=== PATIENT | male | born 1975 | race Caucasian/White ===

== ENCOUNTER 2021-07-18 13:47 | Emergency (ER) | payer OTHER ==
[~2021-07-18] VITALS: Ht 182.9 cm; Wt 136.4 kg
[2021-07-18 15:15] VITALS: BP 138/75
[2021-07-18] MEDS ORDERED: IBUPROFEN 600 MG TABLET PO ONE (15:30)
== END 2021-07-18 16:03 | disposition home or self-care (01) ==
LOC: EMS 13:47
DX: M79.662 Pain in left lower leg (principal); F17.210 Nicotine dependence, cigarettes, uncomplicated; F12.90 Cannabis use, unspecified, uncomplicated; F15.90 Other stimulant use, unspecified, uncomplicated
CPT/HCPCS: 93971; 99283; 99284

== ENCOUNTER 2023-10-29 16:39 | Emergency (ER) | payer OTHER ==
[~2023-10-29] VITALS: Ht 182.9 cm; Wt 150.0 kg
[2023-10-29 17:23] VITALS: TEMP 97.1
[2023-10-29 19:25] VITALS: BP 133/93; PULSE 87; RESP 17
== END 2023-10-29 19:39 | disposition home or self-care (01) ==
LOC: EMS 16:39
DX: S60.444A External constriction of right ring finger, initial encounter (principal); F17.210 Nicotine dependence, cigarettes, uncomplicated; F12.90 Cannabis use, unspecified, uncomplicated; F15.90 Other stimulant use, unspecified, uncomplicated; W45.8XXA Other foreign body or object entering through skin, initial encounter; Y93.89 Activity, other specified; Y92.89 Other specified places as the place of occurrence of the external cause; Y99.8 Other external cause status
CPT/HCPCS: 99284; Z7502